=== PATIENT | female | born 1995 | race African-American/Black ===

== ENCOUNTER 2018-09-25 21:58 | Emergency (ER) | payer MEDICAID ==
[~2018-09-25] VITALS: Ht 170.2 cm; Wt 106.0 kg
[2018-09-26] MEDS ORDERED: KETOROLAC 60MG/2ML VIAL IM ONE (00:15)
[2018-09-26 00:42] VITALS: BP 129/82
== END 2018-09-26 00:43 | disposition home or self-care (01) ==
LOC: ER 21:58
DX: M25.512 Pain in left shoulder (principal); F12.10 Cannabis abuse, uncomplicated; V49.59XA Passenger injured in collision with other motor vehicles in traffic accident, initial encounter; Y93.89 Activity, other specified; Y92.89 Other specified places as the place of occurrence of the external cause; Y99.8 Other external cause status
CPT/HCPCS: 81025; 96372; 99283; J1885